=== PATIENT | female | born 1980 | race Caucasian/White ===

== ENCOUNTER 2018-05-21 11:10 | Emergency (ER) | payer OTHER ==
[2018-05-21 11:20] VITALS: BP 125/87
--- NOTE | 2018-05-21 12:44 | ED Physician Documentation ---
PD HPI HEENT FB - Chief complaint Chief Complaint: Heent - History obtained from History obtained from: Patient - History of Present Illness Timing - onset: Yesterday Pain level max: 0 Pain level now: 0 Location: Left ear Associated symptoms: Congestion. No: Fever, Rhinorrhea, Trismus, Unable to swallow, Swollen nodes, Facial swelling, Headache, Cough Similar symptoms before: Has not had sx before Recently seen: Not recently seen - Additional information Additional information: 37-year-old female with no past medical or surgical history and denies here with complaint of left ear pressure since yesterday. She says she is going to fly back to [place] in 2 days and would like to feel better. She said her left ear feels like there is pressure but not really pain and she had some congestion. She also had been swimming in the pool. She tried Tylenol ensued with that which did not help. Denies any fever, nausea or vomiting.Denies any headache or dizziness.Denies any trauma. Review of Systems Ten Systems: 10 systems reviewed and negative Constitutional: denies: Fever Ears: reports: Ear pain. denies: Loss of hearing, Drainage/discharge, Tinnitus/ringing, Foreign body Nose: reports: Congestion. denies: Rhinorrhea / runny nose Throat: denies: Sore throat GI: denies: Nausea, Vomiting Neurologic: denies: Near syncope, Head injury PD PAST MEDICAL HISTORY - Past Medical History Past Medical History: No - Past Surgical History Past Surgical History: Yes - Present Medications Home Medications: Ambulatory Orders Medication Instructions Recorded Confirmed Neomycin/Polymyx/Hc Otic Drops 4 drops OT TID 10 Days #1 bottle 05/21/18 [Cortisporin Ear Susp] - Allergies Allergies/Adverse Reactions: Allergies Allergy/AdvReac Type Severity Reaction Status Date / Time No Known Drug Allergies Allergy Verified 05/21/18 11:20 - Social History Does the pt smoke?: No Smoking Status: Never smoker Does the pt drink ETOH?: No Does the pt have substance abuse?: No - Immunizations Immunizations are current?: Yes PD ED PE NORMAL - Vitals Vital signs reviewed: Yes - General General: Alert and oriented X 3, No acute distress, Well developed/nourished - HEENT HEENT: Atraumatic, PERRL, EOMI, Moist mucous membranes, Pharynx benign, Other (Bilateral ears with no tenderness of the tragus nor mastoids. No tenderness in the external auditory canal. TMs unable to see erythema but has a little bit of fuzziness to it.) - Neck Neck: Supple, no meningeal sign - Cardiac Cardiac: RRR, No murmur - Respiratory Respiratory: Clear bilaterally - Abdomen Abdomen: Normal bowel sounds, Soft, Non tender, Non distended - Derm Derm: Warm and dry - Extremities Extremities: No deformity - Neuro Neuro: Alert and oriented X 3 - Psych Psych: Normal mood, Normal affect Results - Vitals Vitals: Vital Signs - 24 hr 05/21/18 11:16 Temperature 36.9 C Heart Rate 86 Respiratory 16 Rate Blood Pressure 125/87 H O2 Saturation 99 Oxygen O2 Source Room air PD MEDICAL DECISION MAKING - ED course Complexity details: considered differential (Otitis externa, otitis media, congestion or early upper respiratory infection.), d/w patient (Discussed findings with patient. Agreed to no antibiotics. Will prescribe Corticosporin attic. She will take NSAIDs for pain. She will follow-up with her [place] primary doctor for reevaluation and referral to an ENT as needed.) Departure - Departure Disposition: 01 Home, Self Care Clinical Impression: Acute ear pain Qualifiers: Laterality: left Qualified Code(s): H92.02 - Otalgia, left ear Condition: Stable Instructions: ED Otitis Externa Prescriptions: Neomycin/Polymyx/Hc Otic Drops [Cortisporin Ear Susp] 4 drops OT TID 10 Days #1 bottle Comments: Take [id number] NSAIDs such as Motrin or ibuprofen for pain. Use the Corticosporin otic as prescribed. When you return to [place] follow-up with your primary doctor and get an ENT referral as needed. If worse return to the emergency room.
== END 2018-05-21 12:58 | disposition home or self-care (01) ==
LOC: ED 11:10
DX: H92.02 Otalgia, left ear (principal)
CPT/HCPCS: 99283